=== PATIENT | male | born 1965 | race Caucasian/White ===

== ENCOUNTER 2018-02-26 19:32 | Emergency (ER) | payer BC ==
[~2018-02-26] VITALS: Ht 172.7 cm; Wt 79.5 kg
[2018-02-26 19:43] VITALS: BP 134/79
[2018-02-26] MEDS ORDERED: TRAMADOL HCL50 MG PO (21:35)
[2018-02-26] MEDS ORDERED: MOTRIN800 MG PO (21:35)
[2018-02-26] MEDS ORDERED: PREDNISONE10 M1 PO (21:35)
== END 2018-02-26 22:02 | disposition home or self-care (01) ==
LOC: EME 19:32
DX: M72.2 Plantar fascial fibromatosis (principal)
CPT/HCPCS: 73610; 73630; 99281; 99284